=== PATIENT | male | born 1995 ===

== ENCOUNTER 2021-03-15 23:25 | Emergency (ER) | payer SELFPAY ==
[2021-03-15] MEDS ORDERED: SODIUM CHLORIDE 0.9% 1000 ML 1,000 ML IV ONE (23:27)
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
[2021-03-15 23:43] LABS: Hematocrit 43.1 % (35.5-45.6); Mean Corpuscular HGB Conc 35 % (32-34); Mean Corpuscular Volume 90 fl (84-94); Platelet Count 303 K/mm3 (140-440); Red Blood Count 4.78 M/mm3 (3.65-5.03); Red Cell Distribution Width 12.7 % (13.2-15.2)
[2021-03-15 23:54] LABS: INR 0.89 (0.87-1.13); Partial Thromboplastin Time 20.1 Sec. (24.2-36.6)
[2021-03-15] MEDS ORDERED: ONDANSETRON 4 MG/2 ML INJ IV ONE (23:57)
[2021-03-15] MEDS ORDERED: fentaNYL 100 MCG/2 ML INJ IV ONE (23:57)
[2021-03-16] LABS: BUN/Creatinine Ratio 14; Blood Urea Nitrogen 13 mg/dL (9-20); Hemolysis Index 13
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
[2021-03-16] MEDS ORDERED: fentaNYL 100 MCG/2 ML INJ IV ONE (00:27)
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
[2021-03-16] MEDS ORDERED: HYDROmorphone 1 MG/1 ML INJ IV ONE (01:18)
[2021-03-16 01:31] VITALS: BP 117/75
[2021-03-16 04:32] LABS: Anisocytosis 1+; Band Neutrophils # (Manual) 0.5 K/mm3; Monocytes % (Manual) 3.5 % (0.0-7.3); Platelet Estimate Consistent w Auto; Total Cells Counted 200
== END 2021-03-16 01:35 | disposition other institution (70) ==
LOC: ED 23:25
DX: S12.500A Unspecified displaced fracture of sixth cervical vertebra, initial encounter for closed fracture (principal); S12.600A Unspecified displaced fracture of seventh cervical vertebra, initial encounter for closed fracture; S22.019A Unspecified fracture of first thoracic vertebra, initial encounter for closed fracture; S22.31XA Fracture of one rib, right side, initial encounter for closed fracture; S01.319A Laceration without foreign body of unspecified ear, initial encounter; V89.2XXA Person injured in unspecified motor-vehicle accident, traffic, initial encounter; Y93.89 Activity, other specified; Y92.488 Other paved roadways as the place of occurrence of the external cause; Y99.8 Other external cause status
CPT/HCPCS: 36415; 70450; 71260; 72125; 74177; 80048; 85007; 85025; 85610; 85730; 86850; 86900; 86901; 96361; 96374; 96375; 96376; 99291; J1170; J2405; J3010; J7030; Q9967; 80320; G0480